=== PATIENT | female | born 1935 | race Caucasian/White ===

== ENCOUNTER 2017-06-11 08:16 | Outpatient (CLI) | payer MEDICARE, BC ==
[2017-06-11 10:24] LABS: BLOOD UREA NITROGEN 16 MG/DL (7-18); eGFR 53 ML/MIN
[2017-06-11] MEDS ORDERED: iohexol 300mg/ml 100ml inj. ONE (10:34)
== END 2017-06-11 23:59 | disposition home or self-care (01) ==
LOC: 64 CT 08:16
PROVIDERS: ATTEND Surgery
DX: Z01.818 Encounter for other preprocedural examination (principal); K57.30 Diverticulosis of large intestine without perforation or abscess without bleeding; K43.9 Ventral hernia without obstruction or gangrene
CPT/HCPCS: 36415; 74177; 82565; 84520; J7030; Q9967